=== PATIENT | female | born 1975 | race American Indian/Alaskan Native ===

== ENCOUNTER 2022-12-11 00:55 | Emergency (ER) | payer OTHER ==
[2022-12-11 01:53] LABS: BASOPHILS ABSOLUTE AUTO 0.05 K/mm3 (0.01-0.08); BASOPHILS PERCENT AUTO 0.5 % (0.1-1.2); HEMATOCRIT 38.8 % (34.1-44.9); HEMOGLOBIN 13.5 gm/dl (11.2-15.7); IMMATURE GRAN ABSOLUTE AUTO 0.05 K/mm3 (0.00-0.10); IMMATURE GRAN PERCENT AUTO 0.5 % (<=1.0); LYMPHOCYTES ABSOLUTE AUTO 2.03 K/mm3 (1.18-3.74); LYMPHOCYTES PERCENT AUTO 20.1 % (19.3-51.7); MEAN CORPUSCULAR HGB CONC 34.8 g/dl (32.2-35.5); MEAN CORPUSCULAR VOLUME 77.6 fl (79.4-94.8); MEAN PLATELET VOLUME 10.1 fl (9.4-12.3); MONOCYTES ABSOLUTE AUTO 0.79 K/mm3 (0.24-0.36); MONOCYTES PERCENT AUTO 7.8 % (4.7-12.5); NEUTROPHILS ABSOLUTE AUTO 7.07 K/mm3 (1.56-6.13); NEUTROPHILS PERCENT AUTO 70.1 % (34.0-71.1); PLATELET COUNT,PLT 212 K/mm3 (182-369); WHITE BLOOD CELL COUNT,WBC 10.09 K/mm3 (3.98-10.04)
[2022-12-11 02:15] LABS: A/G RATIO 0.8 (1-2); ALBUMIN 3.3 g/dl (3.4-5.0); ANION GAP 15.7 (5-15); BILIRUBIN TOTAL 0.7 mg/dL (0.2-1.0); BUN/CREATININE RATIO 16.3 (14-18); CALCIUM 8.8 mg/dL (8.5-10.1); CREATININE 0.8 mg/dL (0.55-1.02); EST CRCL DRUG DOSING (CG) 85.81 mL/min; POTASSIUM,K 3.7 mEq/L (3.5-5.1); PROTEIN TOTAL,TP 7.6 g/dl (6.4-8.2)
[2022-12-11] MEDS ORDERED: Insulin Regular, Human 100 Units/ML 3 ML Vial SUBCUT ONE (02:51)
[2022-12-11] MEDS ORDERED: Clindamycin Phosphate in D5W 900 MG in Premix Bag 1 BAG IV ONE ×2 (02:52)
== END 2022-12-11 04:35 | disposition home or self-care (01) ==
LOC: JD.ED 00:55
DX: E11.621 Type 2 diabetes mellitus with foot ulcer (principal); L89.619 Pressure ulcer of right heel, unspecified stage; L03.115 Cellulitis of right lower limb; E11.65 Type 2 diabetes mellitus with hyperglycemia; E11.40 Type 2 diabetes mellitus with diabetic neuropathy, unspecified; F17.210 Nicotine dependence, cigarettes, uncomplicated; Z88.1 Allergy status to other antibiotic agents; Z79.4 Long term (current) use of insulin; Z79.899 Other long term (current) drug therapy; Z79.84 Long term (current) use of oral hypoglycemic drugs
CPT/HCPCS: 36415; 73630; 80053; 82947; 85025; 96365; 99283; J1815; J3490; 99282

== ENCOUNTER 2022-12-18 19:38 | Emergency (ER) | payer OTHER | END 2022-12-18 20:59 | disposition home or self-care (01) | LOC: JD.ED 19:38 | DX: E11.621 Type 2 diabetes mellitus with foot ulcer (principal); L97.509 Non-pressure chronic ulcer of other part of unspecified foot with unspecified severity; E11.40 Type 2 diabetes mellitus with diabetic neuropathy, unspecified; Z88.1 Allergy status to other antibiotic agents; Z79.4 Long term (current) use of insulin; Z79.84 Long term (current) use of oral hypoglycemic drugs | CPT/HCPCS: 73630-26-RT; 73630-RT; 99283; 99284 ==